=== PATIENT | female | born 1970 ===

== ENCOUNTER 2016-09-15 09:36 | Emergency (ER) | payer BC ==
[2016-09-15 10:44] VITALS: BP 131/77
--- NOTE | 2016-09-15 11:32 | UC ---
FLU HPI - HPI Summary HPI Summary: pt presents with c/o nasal congestion,sore throat, generalized malaise, sinus pressure and pain for over 10 days. - History of Current Complaint Chief Complaint: UCGeneralIllness Stated Complaint: SINUS COMPLAINT Time Seen by Provider: 09/15/16 10:45 Hx Obtained From: Patient Hx Last Menstrual Period: 08/21/16 ?: No Onset/Duration: Gradual Onset, Lasting Days Severity Currently: Mild Severity Initially: Mild Associated Signs & Symptoms: Positive: Fever, Cough, Sore Throat, Nasal Congestion Related Hx: Possible Flu/Infectious Exposure - Allergy/Home Medications Allergies/Adverse Reactions: Allergies Allergy/AdvReac Type Severity Reaction Status Date / Time No Known Allergies Allergy Verified 09/15/16 10:39 PMH/Surg Hx/FS Hx/Imm Hx Previously Healthy: Yes - Surgical History Surgical History: Yes Surgery Procedure, Year, and Place: 5 C-SECTIONS, APPENDECTOMY - Family History Known Family History: Positive: Other - postive [facility] for URI - Social History Lives: With Family Alcohol Use: Occasionally Substance Use Type: None Smoking Status (MU): Never Smoked Tobacco Review of Systems Constitutional: Fever, Fatigue Skin: Negative Eyes: Negative ENT: Sore Throat, Other - nasal congestion , sinus pressure Respiratory: Cough Cardiovascular: Negative Gastrointestinal: Negative Genitourinary: Negative Motor: Negative Neurovascular: Negative Musculoskeletal: Myalgia Neurological: Negative Psychological: Negative All Other Systems Reviewed And Are Negative: Yes Physical Exam Triage Information Reviewed: Yes Appearance: Ill-Appearing - mild Vital Signs: Initial Vital Signs Temp 96.8 F 09/15/16 10:40 Pulse 83 09/15/16 10:40 Resp 16 09/15/16 10:40 BP 131/77 09/15/16 10:40 Pulse Ox 98 09/15/16 10:40 Vital Signs Reviewed: Yes Eye Exam: Normal ENT Exam: Other ENT: Positive: Pharyngeal erythema, Nasal congestion Neck exam: Normal Respiratory Exam: Normal Cardiovascular Exam: Normal Musculoskeletal Exam: Normal Neurological Exam: Normal Psychological Exam: Normal Skin Exam: Normal Flu Course/Dx - Course Course Of Treatment: Rapid Strep and influenza test negative. Discussed results with pt. Pt has history of sinusitis. Pt c/o of soinus burning, pressure and pain for over 10 days - Differential Dx/Diagnosis Differential Diagnosis/HQI/PQRI: Influenza, Upper Respiratory Infection Provider Diagnoses: sinusitis Discharge - Discharge Plan Condition: Stable Disposition: HOME Prescriptions: Amoxicillin (*) [Amoxicillin 875 MG (*)] 875 mg PO BID #20 tab Patient Education Materials: Sinusitis (ED) Referrals: No Primary Care Phys,NOPCP [Primary Care Provider] - [facility] [place]] Additional Instructions: Please follow up with a PCP. If you do not have established care with a PCP, I have provided you a list with [facility].
== END 2016-09-15 12:11 | disposition home or self-care (01) ==
LOC: UCCORT 09:36
DX: J32.9 Chronic sinusitis, unspecified (principal); J02.9 Acute pharyngitis, unspecified
CPT/HCPCS: 87502; 87651; 99212; G0463